=== PATIENT | female | born 1985 | race Two or more races ===

== ENCOUNTER → 2016-10-21 | Outpatient (REF) | payer MEDICAID | LOC: M LAB REF 16:37 | PROVIDERS: ATTEND Obstetrics & Gynecology | DX: Z11.3 Encounter for screening for infections with a predominantly sexual mode of transmission (principal) ==

== ENCOUNTER 2019-02-02 16:32 | Emergency (ER) | payer MEDICAID, OTHER ==
[~2019-02-02] VITALS: Ht 167.6 cm; Wt 97.7 kg
[2019-02-02] MEDS ORDERED: PROP20TA72 (16:41)
[2019-02-02] MEDS ORDERED: VENL75CA47 (16:41)
[2019-02-02] MEDS ORDERED: PRED20TA (16:41)
[2019-02-02] MEDS ORDERED: ASPI81CH33 (16:41)
[2019-02-02] MEDS ORDERED: PHEN37.52 (16:41)
[2019-02-02] MEDS ORDERED: FIOR1CAP PO (16:41)
[2019-02-02] MEDS ORDERED: ALL10TAB29 (16:41)
[2019-02-02] MEDS ORDERED: ATOR1TAB21 (16:41)
[2019-02-02] MEDS ORDERED: LEVO112T2 (16:41)
[2019-02-02] MEDS ORDERED: NORT1TAB3 (16:41)
[2019-02-02] MEDS ORDERED: hydrOXYzine 25 MG TAB PO ONE (17:30)
[2019-02-02] MEDS ORDERED: HYDR-3363 PO (17:38)
[2019-02-02 18:01] VITALS: BP 134/87
[2019-02-02 18:27] LABS: MONO REFLEX EBV COMP NEGATIVE (NEGATIVE)
[2019-02-06 00:09] LABS: EBV AB TO NUCLEAR ANTIGEN <18.0 U/mL (0.0-17.9); EBV VIRAL CAPSID AG IgM <36.0 U/mL (0.0-35.9)
== END 2019-02-02 18:02 | disposition home or self-care (01) ==
LOC: M ED 16:32
DX: L42 Pityriasis rosea (principal); I10 Essential (primary) hypertension; E78.00 Pure hypercholesterolemia, unspecified; Z79.899 Other long term (current) drug therapy; Z79.82 Long term (current) use of aspirin

== ENCOUNTER → 2024-10-09 | Outpatient (CLI) | payer OTHER ==
[~2024-10-09] MED LIST: ASPI81CH33; ATOR1TAB21; CETI-24; FIOR1CAP PO; HYDR-3363 PO; LEVO112T2; NORT1TAB3; PHEN37.58; PRED20TA; PROP20TA72; VENL75CA47
== END ==
LOC: M PLAIMG 08:48
PROVIDERS: ATTEND Otolaryngology
DX: J32.0 Chronic maxillary sinusitis (principal)